=== PATIENT | male | born 1940 | race Native Hawaiian/Other Pacific Islander ===

== ENCOUNTER 2017-03-17 06:34 | Outpatient (CLI) | payer OTHER ==
[2017-03-17 08:11] LABS: PLATELET COUNT 247 K/uL (142-355)
[2017-03-17 08:22] LABS: POTASSIUM 3.5 mmol/L (3.6-5.2); SODIUM 142 mmol/L (136-145)
== END 2017-03-17 07:40 | disposition home or self-care (01) ==
LOC: LABW 06:34
PROVIDERS: Nurse Practitioner Family
DX: I10 Essential (primary) hypertension (principal); Z79.899 Other long term (current) drug therapy; E78.4 Other hyperlipidemia; N40.0 Benign prostatic hyperplasia without lower urinary tract symptoms; Z51.81 Encounter for therapeutic drug level monitoring
CPT/HCPCS: 36415; 80053; 80061; 81000; 82043; 82570; 84153; 85027

== ENCOUNTER 2018-05-02 15:37 | Outpatient (CLI) | payer OTHER | END 2018-05-02 20:04 | disposition home or self-care (01) | LOC: RAD 15:37 | DX: M25.551 Pain in right hip (principal) ==

== ENCOUNTER 2018-05-03 06:55 | Outpatient (CLI) | payer OTHER ==
[2018-05-03 07:35] LABS: PLATELET COUNT 327 K/uL (142-355)
[2018-05-03 08:15] LABS: POTASSIUM 3.5 mmol/L (3.6-5.2)
== END 2018-05-03 23:59 | disposition home or self-care (01) ==
LOC: LABW 06:55
PROVIDERS: Nurse Practitioner Family
DX: I10 Essential (primary) hypertension (principal); E78.5 Hyperlipidemia, unspecified; Z79.899 Other long term (current) drug therapy; Z12.5 Encounter for screening for malignant neoplasm of prostate; R97.20 Elevated prostate specific antigen [PSA]
CPT/HCPCS: 36415; 80053; 80061; 81000; 82043; 82570; 84153; 84443; 85027

== ENCOUNTER 2019-05-25 08:33 | Outpatient (CLI) | payer OTHER ==
[2019-05-25 09:01] LABS: PLATELET COUNT 288 K/uL (142-355)
[2019-05-25 09:38] LABS: POTASSIUM 3.9 mmol/L (3.6-5.2)
== END 2019-05-25 22:06 | disposition home or self-care (01) ==
LOC: LABW 08:33
PROVIDERS: Nurse Practitioner Family
DX: I10 Essential (primary) hypertension (principal); E78.2 Mixed hyperlipidemia; Z79.899 Other long term (current) drug therapy; Z12.5 Encounter for screening for malignant neoplasm of prostate; R97.20 Elevated prostate specific antigen [PSA]
CPT/HCPCS: 36415; 80053; 80061; 81000; 82043; 82570; 84153; 85027

== ENCOUNTER 2019-11-19 09:12 | Outpatient (CLI) | payer OTHER | END 2019-11-19 19:10 | disposition home or self-care (01) | LOC: CT 09:12 | DX: L98.8 Other specified disorders of the skin and subcutaneous tissue (principal); L02.818 Cutaneous abscess of other sites; K60.5 Anorectal fistula; K63.2 Fistula of intestine | CPT/HCPCS: 36415; 82565; 84520; Q9963 ==

== ENCOUNTER 2019-12-24 13:43 | Outpatient (CLI) | payer OTHER | END 2019-12-24 19:17 | disposition home or self-care (01) | LOC: LABW 13:43 | DX: C61 Malignant neoplasm of prostate (principal) | CPT/HCPCS: 36415; 84153 ==

== ENCOUNTER 2020-02-26 09:57 | Outpatient (CLI) | payer OTHER | END 2020-02-26 23:52 | disposition home or self-care (01) | LOC: MRI 09:57 | DX: N28.89 Other specified disorders of kidney and ureter (principal) | CPT/HCPCS: 36415; 82565; 84520 ==

== ENCOUNTER 2020-03-11 09:17 | Outpatient (CLI) | payer OTHER | END 2020-03-11 21:28 | disposition home or self-care (01) | LOC: CT 09:17 | DX: N28.89 Other specified disorders of kidney and ureter (principal) | CPT/HCPCS: Q9963 ==

== ENCOUNTER 2020-05-14 11:13 | Outpatient (CLI) | payer OTHER ==
[2020-05-14 11:43] LABS: PLATELET COUNT 250 K/uL (142-355)
[2020-05-14 11:53] LABS: POTASSIUM 3.3 mmol/L (3.6-5.2)
== END 2020-05-14 22:01 | disposition home or self-care (01) ==
LOC: RESP 11:13
PROVIDERS: Colon & Rectal Surgery
DX: Z01.818 Encounter for other preprocedural examination (principal); K60.3 Anal fistula
CPT/HCPCS: 36415; 80053; 85027; 93005

== ENCOUNTER 2020-05-30 08:27 | Outpatient (CLI) | payer OTHER ==
[2020-05-30 09:18] LABS: POTASSIUM 3.3 mmol/L (3.6-5.2)
[2020-05-30 10:14] LABS: PLATELET COUNT 262 K/uL (142-355)
== END 2020-05-30 23:51 | disposition home or self-care (01) ==
LOC: LABW 08:27
PROVIDERS: Nurse Practitioner Family
DX: I10 Essential (primary) hypertension (principal); Z79.899 Other long term (current) drug therapy; E78.2 Mixed hyperlipidemia; R97.20 Elevated prostate specific antigen [PSA]; F41.1 Generalized anxiety disorder
CPT/HCPCS: 36415; 80053; 80061; 81000; 82043; 82570; 84153; 85027

== ENCOUNTER 2020-12-23 10:59 | Outpatient (CLI) | payer OTHER | END 2020-12-23 19:14 | disposition home or self-care (01) | LOC: RAD 10:59 | PROVIDERS: ATTEND Nurse Practitioner Family | DX: M53.3 Sacrococcygeal disorders, not elsewhere classified (principal); Z85.46 Personal history of malignant neoplasm of prostate; Z85.528 Personal history of other malignant neoplasm of kidney ==

== ENCOUNTER 2021-01-12 13:31 | Outpatient (CLI) | payer OTHER | END 2021-01-12 22:30 | disposition home or self-care (01) | LOC: CT 13:31 | PROVIDERS: ATTEND Nurse Practitioner Family | DX: M53.3 Sacrococcygeal disorders, not elsewhere classified (principal); Z85.46 Personal history of malignant neoplasm of prostate ==

== ENCOUNTER 2021-05-28 07:47 | Outpatient (CLI) | payer OTHER ==
[2021-05-28 08:05] LABS: PLATELET COUNT 264 K/uL (142-355)
[2021-05-28 08:29] LABS: POTASSIUM 3.2 mmol/L (3.6-5.2)
== END 2021-05-28 19:07 | disposition home or self-care (01) ==
LOC: LABW 07:47
PROVIDERS: ATTEND Nurse Practitioner Family
DX: Z01.84 Encounter for antibody response examination (principal); I10 Essential (primary) hypertension; F41.1 Generalized anxiety disorder; E78.2 Mixed hyperlipidemia; Z85.46 Personal history of malignant neoplasm of prostate; Z79.899 Other long term (current) drug therapy
CPT/HCPCS: 36415; 80053; 80061; 82043; 82570; 85027; 86769

== ENCOUNTER 2021-06-02 15:36 | Outpatient (CLI) | payer OTHER | END 2021-06-02 19:07 | disposition home or self-care (01) | LOC: LAB 15:36 | PROVIDERS: ATTEND Nurse Practitioner Family | DX: I10 Essential (primary) hypertension (principal); F41.1 Generalized anxiety disorder; E78.2 Mixed hyperlipidemia; Z85.46 Personal history of malignant neoplasm of prostate; Z79.899 Other long term (current) drug therapy | CPT/HCPCS: 36415; 84153; 86900; 86901 ==

== ENCOUNTER 2021-11-03 09:59 | Outpatient (CLI) | payer OTHER | END 2021-11-03 18:59 | disposition home or self-care (01) | LOC: CT 09:59 | PROVIDERS: ATTEND Urology | DX: R10.84 Generalized abdominal pain (principal); N28.89 Other specified disorders of kidney and ureter | CPT/HCPCS: 36415; 82565; 84520; Q9963 ==

== ENCOUNTER 2022-01-18 13:08 | Outpatient (CLI) | payer OTHER | END 2022-01-18 19:02 | disposition home or self-care (01) | LOC: RAD 13:08 | PROVIDERS: ATTEND Nurse Practitioner Family | DX: R22.9 Localized swelling, mass and lump, unspecified (principal); Z85.528 Personal history of other malignant neoplasm of kidney; Z85.46 Personal history of malignant neoplasm of prostate; Z08 Encounter for follow-up examination after completed treatment for malignant neoplasm | CPT/HCPCS: 36415; 82565; 84520; Q9963 ==

== ENCOUNTER 2022-06-03 07:48 | Outpatient (CLI) | payer OTHER ==
[2022-06-03 08:17] LABS: PLATELET COUNT 259 K/uL (142-355)
[2022-06-03 08:38] LABS: POTASSIUM 3.5 mmol/L (3.6-5.2); SODIUM 144 mmol/L (136-145)
== END 2022-06-03 20:44 | disposition home or self-care (01) ==
LOC: LABW 07:48
PROVIDERS: ATTEND Nurse Practitioner Family
DX: Z08 Encounter for follow-up examination after completed treatment for malignant neoplasm (principal); Z85.46 Personal history of malignant neoplasm of prostate; I10 Essential (primary) hypertension; E78.2 Mixed hyperlipidemia; Z12.5 Encounter for screening for malignant neoplasm of prostate; Z79.899 Other long term (current) drug therapy
CPT/HCPCS: 36415; 80053; 80061; 81002; 82043; 84153; 85027

== ENCOUNTER 2022-07-05 09:45 | Outpatient (CLI) | payer OTHER ==
[2022-07-05 10:40] LABS: POTASSIUM 3.4 mmol/L (3.6-5.2)
== END 2022-07-05 20:43 | disposition home or self-care (01) ==
LOC: LABW 09:45
PROVIDERS: ATTEND Nurse Practitioner Family
DX: E87.6 Hypokalemia (principal)
CPT/HCPCS: 36415; 80053

== ENCOUNTER 2023-01-19 07:46 | Outpatient (CLI) | payer OTHER ==
[2023-01-19 08:01] LABS: PLATELET COUNT 236 K/uL (142-355)
[2023-01-19 08:12] LABS: POTASSIUM 3.5 mmol/L (3.6-5.2); SODIUM 142 mmol/L (136-145)
== END 2023-01-19 19:00 | disposition home or self-care (01) ==
LOC: LABW 07:46
PROVIDERS: ATTEND Nurse Practitioner Family
DX: E78.2 Mixed hyperlipidemia (principal); Z79.899 Other long term (current) drug therapy; I10 Essential (primary) hypertension; R97.20 Elevated prostate specific antigen [PSA]; C64.9 Malignant neoplasm of unspecified kidney, except renal pelvis
CPT/HCPCS: 36415; 80053; 80061; 81002; 82043; 82570; 84153; 85027